=== PATIENT | male | born 1990 | race American Indian/Alaskan Native ===

== ENCOUNTER 2018-02-04 05:26 | Emergency (ER) | payer MEDICAID ==
[2018-02-04 05:41] VITALS: O2SAT 100
[2018-02-04] MEDS ORDERED: Sodium Chloride 0.9% 2,000 ML IV ONE (06:06)
--- NOTE | 2018-02-04 06:06 | C.PDOC ---
History Of Present Illness Patient presents to the ER with a complaint of left arm pain stating he is in sickle cell crisis. He is currently speaking in complete sentences. Denies fever, chills, nausea, or vomiting. Time Seen by Provider: 02/04/18 06:05 Chief Complaint (Nursing): Upper Extremity Problem/Injury History Per: Patient History/Exam Limitations: no limitations Onset/Duration Of Symptoms: Hrs Current Symptoms Are (Timing): Still Present Quality: Other (Sickle cell crisis) Severity: Moderate Pain Scale Rating Of: 4 Recent travel outside of the [place]: No Past Medical History Reviewed: Historical Data, Nursing Documentation, Vital Signs Vital Signs: Last Vital Signs Temp 97.6 F 02/04/18 05:33 Pulse 77 02/04/18 05:33 Resp 16 02/04/18 05:33 BP 127/83 02/04/18 05:33 Pulse Ox 100 02/04/18 05:33 - Medical History PMH: Sickle Cell Disease Denies: Chronic Kidney Disease Family History: States: No Known Family Hx - Social History Hx Alcohol Use: No Hx Substance Use: No - Immunization History Hx Tetanus Toxoid Vaccination: No Hx Influenza Vaccination: No Hx Pneumococcal Vaccination: No Review Of Systems Constitutional: Negative for: Fever, Chills Cardiovascular: Negative for: Chest Pain, Palpitations Respiratory: Negative for: Cough, Shortness of Breath Gastrointestinal: Negative for: Nausea, Vomiting Musculoskeletal: Positive for: Arm Pain (Left) Neurological: Negative for: Weakness, Numbness Physical Exam - Physical Exam Appears: Non-toxic Skin: Warm, Dry Head: Normacephalic Oral Mucosa: Moist Neck: Trachea Midline, Supple Chest: Symmetrical, No Tenderness Cardiovascular: Rhythm Regular Respiratory: No Rales, No Rhonchi, No Wheezing Gastrointestinal/Abdominal: Soft, No Tenderness Extremity: Other (Moves all extremities) Pulses: Left Radial: Normal, Right Radial: Normal Neurological/Psych: Oriented x3 ED Course And Treatment O2 Sat by Pulse Oximetry: 100 (Room air) Pulse Ox Interpretation: Normal - Radiology CXR: Interpreted by Me, Viewed By Me CXR Interpretation: No: Infiltrates, Fracture, Pnemothorax Progress Note: Blood work, EKG, CXR, and urinalysis ordered. IV fluids and toradol administered. Disposition Counseled Patient/Family Regarding: Studies Performed, Diagnosis - Disposition Disposition Time: 06:06 Condition: FAIR Forms: [facility] [facility] [employer] ([place]) - Clinical Impression Clinical Impression: Sickle cell anemia with pain - Scribe Statement The provider has reviewed the documentation as recorded by the Scribsalvatore Boyle All medical record entries made by the Scribe were at my direction and personally dictated by me. I have reviewed the chart and agree that the record accurately reflects my personal performance of the history, physical exam, medical decision making, and the department course for this patient. I have also personally directed, reviewed, and agree with the discharge instructions and disposition. Physician Patient Turnover Patient Signed Over To: Vipul Churchill Handoff Comments: pending labs, re-eval and dispo
[2018-02-04] MEDS ORDERED: Sodium Chloride 0.9% 1,000 ML ONE (06:24)
[2018-02-04 06:25] LABS: BASO % 0.6 % (0.0-2.0); EOS # 0.1 K/uL (0.0-0.7); EOS % 1.6 % (0.0-4.0); HEMOGLOBIN 12.1 g/dL (12.0-18.0); LYMPH # 2.2 K/uL (1.0-4.3); LYMPH % 32.1 % (20.0-40.0); MEAN CELL VOLUME 79.5 fL (80.0-94.0); MEAN CORPUSCULAR HEMOGLOBIN 26.8 pg (27.0-31.0); MEAN CORPUSCULAR HGB CONC 33.8 g/dL (33.0-37.0); MEAN PLATELET VOLUME 9.6 fL (7.2-11.7); MONO # 0.2 K/uL (0.0-0.8); MONO % 3.5 % (0.0-10.0); NEUT # 4.2 K/uL (1.8-7.0); NEUT % 62.2 % (50.0-75.0); NRBC % 1.2 % (0.0-2.0); RBC 4.52 Mil/uL (4.40-5.90); RED CELL DISTRIBUTION WIDTH 21.1 % (11.5-14.5); WHITE BLOOD COUNT 6.8 K/uL (4.8-10.8)
[2018-02-04 06:33] LABS: SQUAMOUS EPITHIAL < 1 /hpf (0-5); URINE BACTERIA RARE (<OCC); URINE BILIRUBIN NEGATIVE (NEGATIVE); URINE BLOOD NEGATIVE (NEGATIVE); URINE CLARITY Clear (Clear); URINE COLOR Yellow (YELLOW); URINE GLUCOSE (UA) NORMAL (Normal); URINE LEUKOCYTE ESTERASE NEG Leu/uL (Negative); URINE PROTEIN NEGATIVE (NEGATIVE)
[2018-02-04 06:33] LABS: INR 1.3
[2018-02-04 06:38] LABS: ALB/GLOB RATIO 1.7 (1.0-2.1); ALBUMIN 4.7 g/dL (3.5-5.0); ALT/SGPT 22 U/L (21-72); AST/SGOT 22 U/L (17-59); BLOOD UREA NITROGEN 16 mg/dL (9-20); CALCIUM 8.9 mg/dl (8.6-10.4); GFR NON-AFRICAN AMERICAN > 60
[2018-02-04 06:55] LABS: VENOUS BLOOD GAS BASE EXCESS 1.5 mmol/L (0.0-2.0); VENOUS BLOOD GAS PCO2 49 mmHg (40-60); VENOUS BLOOD GAS PO2 71 mm/Hg (30-55); VENOUS BLOOD PH 7.36 (7.32-7.43)
[2018-02-04 07:40] VITALS: BP 126/78; PULSE 84; RESP 18; TEMP 97.8
--- NOTE | 2018-02-04 07:53 | RAD ---
Chest x-ray single frontal view HISTORY: Shortness of breath. COMPARISON: None available. Findings: No focal infiltrate or effusion. Heart size within normal limits. Impression: No focal infiltrate or effusion.
--- NOTE | 2018-02-04 21:06 | CARD ---
APPROVED REPORT Date of service: 02/04/2018 EKG Measurement Heart [id number] <Conclusion> Normal sinus rhythm ST elevation, probably due to early repolarization Borderline ECG
== END 2018-02-04 07:37 | disposition home or self-care (01) ==
LOC: C.ER 05:26
DX: D57.00 Hb-SS disease with crisis, unspecified (principal)
CPT/HCPCS: 71045; 80053; 81001; 82803; 85025; 85044; 85610; 85730; 86850; 86900; 93005; 96361; 96374; 99284; J1885; J7030